=== PATIENT | female | born 1965 | race Caucasian/White ===

== ENCOUNTER 2018-01-10 09:36 | Emergency (ER) | payer OTHER ==
--- OUTSIDE RECORDS SUMMARY | 2018-01-10 09:43 | XMS REPORT ---
:1965 [facility] Address [address] [place] [address] Care Team Providers Name Role Phone Lucinda Stephens Unavailable Unavailable PROBLEMS Type Condition ICD9-CM Code [id number] Onset Condition SNOMED Code Code Dates Status Problem Other specified N93.8 Active 653646374 abnormal uterine and vaginal bleeding Problem Family history Z80.3 Active 296405686 of malignant neoplasm of breast Problem Body mass index Z68.35 Active 948088920136988 (BMI) 35.0-35.9, adult Problem Tobacco abuse Z71.6 Active [id number] counseling ALLERGIES Substance Reaction Event Type Date Status Augmentin rash Drug Allergy December, Active ENCOUNTERS Encounter Location Date Diagnosis [facility] [address] December, OBGYN [place], [place] [id number] [facility] 103 December, Other specified OBGYN [facility], abnormal uterine and [place] [id number] vaginal bleeding N93.8 [facility] 103 December, Other specified OBGYN [facility], abnormal uterine and [place] [id number] vaginal bleeding N93.8 and Body mass index (BMI) 35.0-35.9, adult Z68.35 [facility] 103 Nov, Other specified OBGYN [facility], abnormal uterine and [place] [id number] vaginal bleeding N93.8 ; Family history of malignant neoplasm of breast Z80.3 ; Body mass index (BMI) 35.0-35.9, adult Z68.35 and Tobacco abuse counseling Z71.6 IMMUNIZATIONS No Known Immunizations SOCIAL HISTORY Never Assessed REASON FOR REFERRAL FUNCTIONAL STATUS PLAN OF CARE Activity Details Follow Up to be scheduled Reason: VITAL SIGNS MEDICATIONS Medication Instructions Dosage Frequency Start Date End Date Duration Status Cytotec 200 mcg orally 1 tab at 1 tab(s) Active dinner night before procedure, 1 tab at bedtime night before procedure, 1 tab at 6 AM day of procedure PROCEDURES No Known procedures RESULTS No Results REASON FOR VISIT [facility] MEDICAL (GENERAL) HISTORY Type Description Date Medical History H/o Diverticulitis Medical History Benign breast Biopsy Left breast Surgical History Lt breast Benign breat Biopsy 2014 Hospitalization History child
--- OUTSIDE RECORDS SUMMARY | 2018-01-10 09:43 | XMS REPORT ---
:1965 Author Name sound, ultra Care Team Providers Name Role Phone sound, ultra Unavailable Unavailable PROBLEMS Type Condition ICD9-CM Code [id number] Onset Condition SNOMED Code Code Dates Status Problem Other specified N93.8 Active 229362275 abnormal uterine and vaginal bleeding Problem Family history Z80.3 Active 235821368 of malignant neoplasm of breast Problem Body mass index Z68.35 Active 443013291205789 (BMI) 35.0-35.9, adult Problem Tobacco abuse Z71.6 Active [id number] counseling ALLERGIES No Information ENCOUNTERS Encounter Location Date Diagnosis [facility] [address] December, OBGYN [facility], [place] [id number] [facility] 103 December, Other specified OBGYN [facility], abnormal uterine and [place] [id number] vaginal bleeding N93.8 [facility] 103 December, Other specified OBGYN [facility], abnormal uterine and [place] [id number] vaginal bleeding N93.8 and Body mass index (BMI) 35.0-35.9, adult Z68.35 [facility] 103 Nov, Other specified OBGYN [facility], abnormal uterine and [place] [id number] vaginal bleeding N93.8 ; Family history of malignant neoplasm of breast Z80.3 ; Body mass index (BMI) 35.0-35.9, adult Z68.35 and Tobacco abuse counseling Z71.6 IMMUNIZATIONS No Known Immunizations SOCIAL HISTORY Never Assessed REASON FOR REFERRAL FUNCTIONAL STATUS PLAN OF CARE Activity Details Pending Test URINE TEST VITAL SIGNS MEDICATIONS Unknown Medications PROCEDURES Procedure Date Ordered Result Body Site URINE TEST December 22, 2017 TRANSVAGINAL US, NON-OB December 22, 2017 3D rendering requiring imaging post processing December 22, 2017 ECHO EXAM, UTERUS December 22, 2017 CATHETER FOR HYSTEROGRAPHY December 22, 2017 RESULTS Name Result Date Reference Range Hysterosonogram REASON FOR VISIT [facility] MEDICAL (GENERAL) HISTORY Type Description Date Medical History H/o Diverticulitis Medical History Benign breast Biopsy Left breast Surgical History Lt breast Benign breat Biopsy 2014 Hospitalization History child
[2018-01-10 10:02] VITALS: BP 140/94
--- NOTE | 2018-01-10 10:30 | UC ---
Complaint Female HPI - HPI Summary HPI Summary: Patient has a recent [employer]ER procedure that she described as very rough. she was very sore afterward and had alot of nena pain. The pain was only when she urinated, no it is burning with urination, and feels brusied externally. - History Of Current Complaint Chief Complaint: UCGU Stated Complaint: URINARY COMPLAINT Time Seen by Provider: 01/10/18 09:43 Hx Obtained From: Patient Hx Last Menstrual Period: 11/01/17 ?: No Onset/Duration: Sudden Onset, Lasting Days Timing: Lasting Days Severity Initially: Mild Severity Currently: Moderate Pain Intensity: 3 Character: Burning Aggravating Factor(s): Movement, Urination - Allergies/Home Medications Allergies/Adverse Reactions: Allergies Allergy/AdvReac Type Severity Reaction Status Date / Time amoxicillin [From Augmentin] AdvReac vaginal Verified 01/10/18 10:03 yeast clavulanic acid AdvReac vaginal Verified 01/10/18 10:03 [From Augmentin] yeast Home Medications: Home Medications Dextromethorphn/Acetaminoph/Cp [Vicks Nyquil Cold & Flu N] 1 liq PO BEDTIME PRN 01/10/18 [History Confirmed 01/10/18] PMH/Surg Hx/FS Hx/Imm Hx Previously Healthy: Yes - Surgical History Surgical History: None - Family History Known Family History: Negative: Diabetes - Social History Alcohol Use: Occasionally Substance Use Type: None Smoking Status (MU): Light Every Day Tobacco Smoker Review of Systems Constitutional: Negative Skin: Negative Eyes: Negative ENT: Negative Respiratory: Negative Cardiovascular: Negative Gastrointestinal: Negative Genitourinary: Dysuria Motor: Negative Neurovascular: Negative Musculoskeletal: Negative Neurological: Negative Psychological: Negative Is Patient Immunocompromised?: No All Other Systems Reviewed And Are Negative: Yes Physical Exam Triage Information Reviewed: Yes Appearance: Well-Appearing, Well-Nourished, Pain Distress Vital Signs: Initial Vital Signs Temp 98.8 F 01/10/18 09:48 Pulse 67 01/10/18 09:48 Resp 18 01/10/18 09:48 BP 140/94 01/10/18 09:48 Pulse Ox 99 01/10/18 09:48 Vital Signs Reviewed: Yes Eye Exam: Normal ENT Exam: Normal Dental Exam: Normal Neck exam: Normal Respiratory Exam: Normal Cardiovascular Exam: Normal Abdominal Exam: Normal Bowel Sounds: Positive: Present Pelvic Exam: Positive: Other - 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 Musculoskeletal Exam: Normal Neurological Exam: Normal Complaint Female Dx - Course Course Of Treatment: hx obtained, exam performed ,meds reviewed, UA obtained and treated - Differential Dx/Diagnosis Differential Diagnosis/HQI/PQRI: Urinary Tract Infection, Other - labial trauma , cellulitis of genital area Provider Diagnoses: UTI Discharge - Sign-Out/Discharge Documenting (check all that apply): Discharge/Admit/Transfer - Discharge Plan Condition: Stable Disposition: HOME Prescriptions: Cephalexin CAP* [Keflex CAP*] 500 mg PO BID #14 cap Fluconazole [Diflucan 150 MG (NF)] 150 mg PO ONCE #1 tab Patient Education Materials: Urinary Tract Infection in Women (DC) Referrals: Eva Montoya MD [Primary Care Provider] - Additional Instructions: 1. Take the medication as prescribed. 2. Warm water bath soaks, [place] epsom salts if you would like to soothe the traumatic area 3. Coconut oil topically to soothe 4. Follow up with any worsening symtpoms - Billing Disposition and Condition Condition: STABLE Disposition: HOME
== END 2018-01-10 10:31 | disposition home or self-care (01) ==
LOC: UCCORT 09:36
DX: N39.0 Urinary tract infection, site not specified (principal); Z88.3 Allergy status to other anti-infective agents; F17.210 Nicotine dependence, cigarettes, uncomplicated
CPT/HCPCS: 81003; 87086; 99212; G0463

== ENCOUNTER 2018-02-14 10:14 | Emergency (ER) | payer OTHER ==
[2018-02-14 10:36] VITALS: BP 161/92
--- NOTE | 2018-02-14 11:11 | UC ---
Complaint Female HPI - HPI Summary HPI Summary: Patient has had a complicated last 2 months. Patient has a uterine instrumentation to evaluate dysfunctional uterine bleeding, unsuccessfully able to get into her uterus she since then has had pain had been treated with antibiotics for cellulitis and urinary tract infection. Is now into the urgent care with urinary pain and burning and urinary flatulence. Patient is afebrile and is not tachycardic. She has made a follow-up appointment with Dr. Wang but is unable to get in until late in February. - History Of Current Complaint Chief Complaint: UCGU Stated Complaint: URINARY Time Seen by Provider: 02/14/18 11:04 Hx Obtained From: Patient Hx Last Menstrual Period: 01/17/18 ?: No Onset/Duration: Gradual Onset, Worse Since - past 2 days Timing: Constant Severity Initially: Mild Severity Currently: Moderate Character: Burning Aggravating Factor(s): Urination Alleviating Factor(s): Nothing Associated Signs And Symptoms: Positive: Negative - Allergies/Home Medications Allergies/Adverse Reactions: Allergies Allergy/AdvReac Type Severity Reaction Status Date / Time No Known Allergies Allergy Verified 02/14/18 10:22 Home Medications: Home Medications NK [No Home Medications Reported] 02/14/18 [History Confirmed 02/14/18] PMH/Surg Hx/FS Hx/Imm Hx Previously Healthy: Yes - Surgical History Surgical History: None - Family History Known Family History: Positive: None Negative: Diabetes - Social History Occupation: Employed Full-time Lives: With Family Alcohol Use: Occasionally Substance Use Type: None Smoking Status (MU): Light Every Day Tobacco Smoker Type: Cigarettes Amount Used/How Often: 5-7 cigs/day Have You Smoked in the Last Year: Yes Review of Systems Constitutional: Negative Skin: Negative Eyes: Negative ENT: Negative Respiratory: Negative Cardiovascular: Negative Gastrointestinal: Negative Genitourinary: Dysuria Motor: Negative Neurovascular: Negative Musculoskeletal: Negative Neurological: Negative Psychological: Negative Is Patient Immunocompromised?: No All Other Systems Reviewed And Are Negative: Yes Physical Exam Triage Information Reviewed: Yes Appearance: Well-Appearing, Well-Nourished, Pain Distress - mild Vital Signs: Initial Vital Signs Temp 98 F 02/14/18 10:22 Pulse 69 02/14/18 10:22 Resp 16 02/14/18 10:22 BP 161/92 02/14/18 10:22 Pulse Ox 98 02/14/18 10:22 Vital Signs Reviewed: Yes Eye Exam: Normal Eyes: Positive: Conjunctiva Clear ENT Exam: Normal ENT: Positive: Normal ENT inspection, Hearing grossly normal. Negative: Trismus , Muffled voice, Hoarse voice Dental Exam: Normal Neck exam: Normal Neck: Positive: Supple, Nontender Respiratory Exam: Normal Respiratory: Positive: Chest non-tender, No respiratory distress, No accessory muscle use Cardiovascular Exam: Normal Cardiovascular: Positive: RRR, Pulses Normal, Brisk Capillary Refill Abdominal Exam: Normal Abdomen Description: Negative: CVA Tenderness (R), CVA Tenderness (L) Musculoskeletal Exam: Normal Musculoskeletal: Positive: Strength Intact, ROM Intact, No Edema Neurological Exam: Normal Neurological: Positive: Alert, Muscle Tone Normal Psychological Exam: Normal Skin Exam: Normal Diagnostics - Laboratory Diagnostic Studies Completed/Ordered: Urine dip was positive for blood, leukoesterase, nitrites, protien Complaint Female Dx - Course Course Of Treatment: npo, to [facility] by private car for further assessment and treatment - Differential Dx/Diagnosis Provider Diagnoses: acute pelvic pain,urinary flatulence - Physician Notifications Time Discussed With Above Provider: 11:15 - [facility] Nurse Liaison Instructed by Provider To: Transfer Discharge - Sign-Out/Discharge Documenting (check all that apply): Discharge/Admit/Transfer - Discharge Plan Condition: Fair Disposition: HOME Discharge Disposition Comment: D/c to [facility] ed for further evaluation Patient Education Materials: Acute Abdominal Pain (ED), Pelvic Pain in Women ( ED) Referrals: Eva Montoya MD [Primary Care Provider] - - Billing Disposition and Condition Condition: FAIR Disposition: Home
== END 2018-02-14 11:24 | disposition home or self-care (01) ==
LOC: UCCORT 10:14
DX: R10.2 Pelvic and perineal pain (principal); R14.3 Flatulence; R39.89 Other symptoms and signs involving the genitourinary system; F17.210 Nicotine dependence, cigarettes, uncomplicated
CPT/HCPCS: 81003; 87077; 87086; 87186; 99212; G0463

== ENCOUNTER 2018-07-21 12:01 | Emergency (ER) | payer OTHER ==
--- OUTSIDE RECORDS SUMMARY | 2018-07-21 12:51 | XMS REPORT ---
:1965 External Reference #:[id number] Author Organization [facility] Address [address], [address] [place] [address] Phone [phone] Care Team Providers Name Role Phone Eva Montoya MD Care Team Information Behavioral Health Director Unavailable Eva Montoya MD Primary Care Physician Unavailable Payers Type Date Identification Numbers Payment Provider Subscriber Commercial Policy Number: [id number] Lifetime Benefit Solution Austen Valderrama PayID: [id number] [address] [address] [place] [address] Problems Date Description Provider Status Onset: 07/05/2018 Urinary tract infectious disease Yobany Fairbanks M.D. Active Onset: 03/29/2018 Detrusor instability of bladder Yobany Fairbanks M.D. Active Onset: 03/29/2018 Intestinovesical fistula Yobany Fairbanks M.D. 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 soda Allergies, Adverse Reactions, Alerts Date Description Reaction Status Severity Comments 03/08/2018 Bactrim active 02/15/2018 NKDA inactive Medications Medication Date Status Form Strength Qnty SIG Indications Ordering Provider Ibuprofen 200 / Active Tablets 200mg 1-2 tabs by Unknown 0000 mouth three times a day as needed Uribel 05/20/ Hx Capsules 118mg 20caps 1 tab by Sue, 2017 - mouth up to [facility], 07/05/ four times M.D. 2017 a day azra Levaquin 05/05/ Hx Tablets 500mg 21tabs 1 by mouth Sue, 2017 - [facility] Myrbetriq 03/26/ Hx Tablets ER 50mg 30tabs 1 by mouth Sue, 2017 - [facility] Golytely 03/25/ Hx Solution 236gm 4000ml drink half Z12.11 Shayla, 2018 - Rec the evening MD Jake 07/05/ before and 2017 half the morning of the procedure (1 cup every 10') Dulcolax 03/25/ Hx Tablets DR 5mg 4tabs 4 tablets Z12.Christel Mcguire, 2018 - taken a 8pm MD Jake 07/05/ the day 2017 before the procedure Magnesium 03/25/ Hx Solution 1.745GM/30 296ml Z12.11 Shayla Citrate 2017 - ML MD Jake 2017 Ditropan XL 03/18/ Hx Tablets ER 10mg 8tabs 1 by mouth Sue, 2018 - 24HR every day [facility] Ibuprofen / Hx Tablets 200mg take one Unknown 0000 - tablet by mouth every 2017 12 hours as needed for pain with food Keflex / Hx Capsules 500mg bid Unknown 0000 - 2017 Senna / Hx Tablets 8.6mg Once a day Unknown Laxative 0000 - prn 2017 Eye Drops / Hx bid Unknown 0000 - 2017 Vital Signs Date Vital Result Comment 07/05/2018 BP Systolic 156 mmHg BP Diastolic 96 mmHg Body Temperature 98.1 F Heart Rate 64 /min Respiratory Rate 16 /min Weight 198.38 lb O2 % BldC Oximetry 96 % Pain Level 0 03/29/2018 BP Systolic 177 mmHg 178/90 mau BP Diastolic 91 mmHg 178/90 mau Body Temperature 98.6 F Heart Rate 79 /min Respiratory Rate 16 /min O2 % BldC Oximetry 97 % Pain Level 0 03/25/2018 BP Systolic Sitting Left Arm 140 mmHg BP Diastolic Sitting Left Arm 90 mmHg Heart Rate 58 /min Respiratory Rate 16 /min Height 62.5 inches 5'2.50" Weight 193.00 lb BMI (Body Mass Index) 34.7 kg/m2 BSA (Body Surface Area) 1.89 m2 [place] body weight in kilograms 51 03/08/2018 BP Systolic 124 mmHg BP Diastolic 88 mmHg Body Temperature 99.3 F Heart Rate 79 /min Respiratory Rate 16 /min Height 62.5 inches 5'2.50" [place] body weight in kilograms 51 O2 % BldC Oximetry 99 % Pain Level 3 Low abd pain - bloating sensation 02/15/2018 BP Systolic 158 mmHg BP Diastolic 85 mmHg Body Temperature 98.1 F Heart Rate 67 /min Respiratory Rate 16 /min Height 62.5 inches 5'2.50" Weight 195.00 lb BMI (Body Mass Index) 35.1 kg/m2 BSA (Body Surface Area) 1.90 m2 [place] body weight in kilograms 51 O2 % BldC Oximetry 97 % Pain Level 2 Burning on urination 09/25/2017 Body Temperature 97.7 F Respiratory Rate 19 /min Height 62.5 inches Weight 207.00 lb BMI (Body Mass Index) 37.3 kg/m2 BSA (Body Surface Area) 1.95 m2 [place] body weight in kilograms 51 Results Test Date Test Result H/L Range Note Urine Culture 05/20/2018 Urine Culture URETHRAL LAUREL 1 Quantity 10,000 - 50,000 <SEE NOTE> 1, 2 Ua RFX Micro & Culture II 05/03/2018 Urine Color YELLOW Yellow 1 Urine Clarity CLOUDY Clear 1 Urine Glucose - Dipstick NEGATIVE mg/dL Negative 1 Urine Bilirubin - Dipstick NEGATIVE Negative 1 Urine Ketone NEGATIVE mg/dL Negative 1 Urine Specific [place] 1.020 1.010-1.030 1 Urine Blood MODERATE Negative 1 Urine PH 8.5 High 6.5-7.5 1 Urine Protein - Dipstick TRACE mg/dL Negative 1 Urine Urobilinogen - Dipstick 0.2 E.U./dL 0.2-1.0 1 Urine Nitrite - Dipstick NEGATIVE Negative 1 Urine Leuk Esterase SMALL Negative 1 Urine RBC 10-20 rbc/hpf High 0-2 1 Urine WBC TNTC wbc/hpf High 0-7 1 Urine Epithelial Cells MODERATE /lpf None Seen 1, 3 Urine Bacteria MODERATE None Seen 1 Urine Amorph Sediment SMALL Negative 1 Source: URINE, CLEAN CAT <SEE NOTE> 1, 4 Urine Culture 05/03/2018 Urine Culture KLEBSIELLA OXYTO <SEE NOTE> 1, 5 Quantity > 100,000 CFU/mL 1, 6 Urine Culture URETHRAL LAUREL 1 Quantity < 10,000 CFU/mL 1 Klebsiella Oxytoca 05/03/2018 Nitrofurantoin 32 1 Trimethoprim/Sulfamethoxazole <=20 1 Ampicillin >=32 1 Cefazolin <=4 1 Ampicillin/Sulbactam 8 1 Ciprofloxacin <=0.25 1 Piperacillin/Tazobactam <=4 1 Ceftazidime <=1 1 Ceftriaxone <=1 1 Cefepime <=1 1 Levofloxacin <=0.12 1 Imipenem <=0.25 1 Gentamicin <=1 1 Tobramycin <=1 1 Surgical Tissue 03/11/2018 Surgical Pathology Surgical Patholo <SEE NOTE> 7 Urine Culture 03/08/2018 Urine Culture URETHRAL LAUREL 8 Quantity 10,000 - 50,000 <SEE NOTE> 8, 9 Ua RFX Micro & Culture II 03/08/2018 Urine Color YELLOW Yellow 8 Urine Clarity SL CLOUDY Clear 8 Urine Glucose - Dipstick NEGATIVE mg/dL Negative 8 Urine Bilirubin - Dipstick NEGATIVE Negative 8 Urine Ketone NEGATIVE mg/dL Negative 8 Urine Specific [place] >=1.030 1.010-1.030 8 Urine Blood LARGE Negative 8 Urine PH 6.0 Low 6.5-7.5 8 Urine Protein - Dipstick 30 mg/dL High Negative 8 Urine Urobilinogen - Dipstick 0.2 E.U./dL 0.2-1.0 8 Urine Nitrite - Dipstick NEGATIVE Negative 8 Urine Leuk Esterase MODERATE Negative 8 Urine RBC 5-10 rbc/hpf High 0-2 8 Urine WBC > 50 wbc/hpf High 0-7 8 Urine Epithelial Cells FEW /lpf None Seen 8 Urine Bacteria MODERATE None Seen 8 1 N39.0 2 10,000 - 50,000 CFU/mL 3 POSSIBLE UROGENITAL CONTAMINATION. 4 URINE, CLEAN CATCH 5 KLEBSIELLA OXYTOCA 6 > 100,000 CFU/mL 7 Surgical Pathology Report Name: NATASHA VALDERRAMA Collection Date: 03/11/2018 16:50 Received Date: 03/12/2018 07:53 Physician(s): YOBANY FAIRBANKS MAHMOUD Specimen(s) Received A: Bladder mass Clinical History Bladder mass. Diagnosis BLADDER, MASS, BIOPSY: MODERATE TO SEVERE ACUTE AND CHRONIC INFLAMMATION AND REACTIVE UROTHELIAL CHANGES CONSISTENT WITH POLYPOID CYSTITIS (See microscopic description). Electronically Signed By Lc Kohler M.D., Attending Pathologist 03/15/2018 16:50:43 Gross Description The specimen is received in formalin labeled with the patient's name "Natasha Valderrama" and "bladder mass". It consists of multiple (greater than 10) soft osorio tissue fragments ranging from 0.2 cm to 0.7 cm and aggregating to 2.2 cm. Totally submitted in one cassette. MG/km Microscopic Description Sections show edematous submucosa and moderate to severe acute and chronic inflammation with overlying broad based papillae without significant branching. The urothelial lining is reactive without loss of polarization of nuclei. 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 This report may include one or more immunohistochemical stain results that use analyte specific reagents. All positive and negative controls have been reviewed by the attending pathologist and are satisfactory. The tests were developed and their performance characteristics determined by [facility] Pathology department. They have not been cleared or approved by the [place] Food and Drug Administration. The FDA has determined that such clearance or approval is not necessary. 8 C67.4 9 10,000 - 50,000 CFU/mL Procedures Date CPT Code Description Status 04/05/2018 34020 Cystoscopy Completed 04/05/2018 45080 Injection For Cystography Or Voiding Urethrocystography Completed 04/05/2018 32884 Colonoscopy With Polypectomy Completed 02/15/2018 75990 Cystourethroscopy W/ Fulguration/Resect Med Bladder Completed Tumor 11/09/2003 04230 Asp./Injection major joint Completed Encounters Type Date Location Provider CPT E/M Dx Office Visit 03/29/2018 3:15p Urology Yobany Fairbanks M.D. 16307 N32.89 Office Visit 03/25/2018 10:15[place] [address] Z12.11 R39.89 Office Visit 03/08/2018 3:45p Urology Yobany Fairbanks M.D. 21155 R21 Office Visit 02/15/2018 3:15p Urology Yobany Fairbanks M.D. 67176 R39.89 Office Visit 09/25/2017 2:30p Orthopaedic Office Enedina Knutson, [address] M25.571 [facility] Plan of Care Future Appointment(s):07/15/2018 4:00 pm - Yobany Fairbanks M.D. at [email or web address] - Yobany Fairbanks M.D.N39.0 Urinary tract infection, site not specifiedComments:Patient with history of UTI and pneumaturia. We'll repeat a urine culture today to see if she continues to have one. Patient to follow-up with me in 3 months for cystoscopy. I told her to stop taking the ibuprofen.
[2018-07-21 13:02] VITALS: BP 164/98
--- NOTE | 2018-07-21 13:28 | UC ---
Throat Pain/Nasal Cash HPI - HPI Summary HPI Summary: 52-year-old woman comes to clinic today with a chief complaint of 2 weeks of runny nose sinus pressure rhinorrhea sore throat and feeling ill. She's tried [id number] medicines which helped some but then the symptoms worsening AGAIN. She's had some fevers and chills. The rhinorrhea is yellow to green. A lot of sinus pressure. Has also been having some ear pressure primarily on the right side has also. She does have a history of earwax. - History of Current Complaint Chief Complaint: UCRespiratory Stated Complaint: SINUS CONGESTION Time Seen by Provider: 07/21/18 13:00 Hx Last Menstrual Period: 01/17/18 Pain Intensity: 0 - Allergies/Home Medications Allergies/Adverse Reactions: Allergies Allergy/AdvReac Type Severity Reaction Status Date / Time sulfamethoxazole Allergy Rash Verified 07/21/18 12:58 [From Bactrim] trimethoprim [From Bactrim] Allergy Rash Verified 07/21/18 12:58 Home Medications: Home Medications Ibuprofen TAB* [Advil TAB*] 800 mg PO Q6H PRN 07/21/18 [History Confirmed ] PMH/Surg Hx/FS Hx/Imm Hx Previously Healthy: Yes - Surgical History Surgical History: None - Family History Known Family History: Positive: None Negative: Diabetes - Social History Alcohol Use: Occasionally Substance Use Type: None Smoking Status (MU): Light Every Day Tobacco Smoker Type: Cigarettes Amount Used/How Often: 5-7 cigs/day Have You Smoked in the Last Year: Yes Review of Systems All Other Systems Reviewed And Are Negative: Yes Constitutional: Positive: Fever, Chills Skin: Positive: Negative Eyes: Positive: Negative ENT: Positive: Sore Throat, Ear Ache - RIGHT, Nasal Discharge, Sinus Congestion , Sinus Pain/Tenderness Respiratory: Positive: Negative Cardiovascular: Positive: Negative Gastrointestinal: Positive: Negative Motor: Positive: Negative Neurovascular: Positive: Negative Musculoskeletal: Positive: Negative Neurological: Positive: Negative Psychological: Positive: Negative Is Patient Immunocompromised?: No Physical Exam Triage Information Reviewed: Yes Appearance: No Pain Distress, Well-Nourished, Ill-Appearing - MILD Vital Signs: Initial Vital Signs Temp 99.1 F 07/21/18 12:58 Pulse 76 07/21/18 12:58 Resp 18 07/21/18 12:58 BP 164/98 12/12/18 12:58 Pulse Ox 98 07/21/18 12:58 Vital Signs Reviewed: Yes Eye Exam: Normal Eyes: Positive: Conjunctiva Clear ENT: Positive: Pharyngeal erythema, Nasal congestion, Nasal drainage, Other - RIGHT CERUMEN IMPACTION Neck exam: Normal Neck: Positive: Supple Respiratory: Positive: Lungs clear, Normal breath sounds, No respiratory distress Cardiovascular: Positive: RRR Musculoskeletal Exam: Normal Musculoskeletal: Positive: Strength Intact, ROM Intact Neurological Exam: Normal Neurological: Positive: Alert, Muscle Tone Normal Psychological Exam: Normal Psychological: Positive: Age Appropriate Behavior Skin Exam: Normal Throat Pain/Nasal Course/Dx - Course Course Of Treatment: I discussed continued symptomatic treatment for the sinuses. Prescribed Augmentin. With the cerumen impaction on the right patient declined irrigation today and I recommended using [id number] earwax drops and follow-up as needed. - Differential Dx/Diagnosis Provider Diagnosis: Sinusitis, Impacted cerumen, right ear Discharge - Sign-Out/Discharge Documenting (check all that apply): Patient Departure All imaging exams completed and their final reports reviewed: No Studies - Discharge Plan Condition: Stable Disposition: HOME Prescriptions: Amoxicillin/Clavulanate TAB* [Augmentin TAB 875*] 875 mg PO BID #20 tab Fluconazole [Diflucan 150 MG (NF)] 150 mg PO ONCE #2 tab Patient Education Materials: Sinusitis (ED), Cerumen Impaction (ED) Referrals: Eva Montoya MD [Primary Care Provider] - Additional Instructions: FOLLOW UP WITH YOUR DOCTOR IF NOT COMPLETELY IMPROVED. USE OVER THE COUNTER EAR WAX DROPS TO HELP LOOSEN UP THE EAR WAX. GET RECHECKED FOR ANY WORSENING OF YOUR CONDITION OR QUESTIONS OR CONCERNS. - Billing Disposition and Condition Condition: STABLE Disposition: Home
== END 2018-07-21 13:42 | disposition home or self-care (01) ==
LOC: UCCORT 12:01
DX: J32.9 Chronic sinusitis, unspecified (principal); H61.21 Impacted cerumen, right ear; Z88.1 Allergy status to other antibiotic agents; F17.210 Nicotine dependence, cigarettes, uncomplicated
CPT/HCPCS: 99212; G0463

== ENCOUNTER 2018-10-04 13:44 | Emergency (ER) | payer OTHER ==
[2018-10-04 14:08] VITALS: BP 145/69
--- NOTE | 2018-10-04 14:29 | UC ---
UC General HPI - HPI Summary HPI Summary: sore throat x 5-6 days. admits to mild nasal congestion and chronic cough from smoking. no sob, fever, SOUTH or myalgias. no asthma or copd. - History of Current Complaint Chief Complaint: UCGeneralIllness Stated Complaint: ST Time Seen by Provider: 10/04/18 14:16 Hx Obtained From: Patient Hx Last Menstrual Period: 01/17/18 Pain Intensity: 3 Associated Signs & Symptoms: Negative: Chest Pain, Fever - Allergy/Home Medications Allergies/Adverse Reactions: Allergies Allergy/AdvReac Type Severity Reaction Status Date / Time sulfamethoxazole Allergy Rash Verified 10/04/18 14:04 [From Bactrim] trimethoprim [From Bactrim] Allergy Rash Verified 10/04/18 14:04 PMH/Surg Hx/FS Hx/Imm Hx Previously Healthy: Yes - Surgical History Surgical History: None - Family History Known Family History: Positive: None Negative: Diabetes - Social History Occupation: Employed Full-time Alcohol Use: Occasionally Substance Use Type: None Smoking Status (MU): Light Every Day Tobacco Smoker Type: Cigarettes Amount Used/How Often: ~1/3 PPD Length of Time of Smoking/Using Tobacco: Since Age 17 Have You Smoked in the Last Year: Yes Review of Systems All Other Systems Reviewed And Are Negative: Yes Constitutional: Positive: Negative Skin: Positive: Negative Eyes: Positive: Negative ENT: Positive: Sore Throat, Sinus Congestion Respiratory: Positive: Cough Cardiovascular: Positive: Negative Gastrointestinal: Positive: Negative Genitourinary: Positive: Negative Motor: Positive: Negative Neurovascular: Positive: Negative Musculoskeletal: Positive: Negative Neurological: Positive: Negative Psychological: Positive: Negative Physical Exam Triage Information Reviewed: Yes Appearance: Well-Appearing Vital Signs: Initial Vital Signs Temp 98.1 F 10/04/18 14:01 Pulse 72 10/04/18 14:01 Resp 16 10/04/18 14:01 BP 145/69 10/04/18 14:01 Pulse Ox 99 10/04/18 14:01 Vital Signs Reviewed: Yes Eyes: Positive: Conjunctiva Clear ENT: Positive: Pharyngeal erythema - mild, TMs normal - L. Cerumen impaction R, Uvula midline - but mildly red and swollen.. Negative: Nasal drainage, Trismus , Muffled voice, Hoarse voice, Sinus tenderness Neck: Positive: Supple, Enlarged Nodes @ - peritonsilar Respiratory: Positive: Lungs clear, No respiratory distress, Decreased breath sounds - slight Cardiovascular: Positive: RRR, No Murmur Abdomen Description: Positive: Nontender, No Organomegaly, Soft Bowel Sounds: Positive: Present Musculoskeletal: Positive: ROM Intact Neurological: Positive: Alert Psychological: Positive: Age Appropriate Behavior Skin Exam: Normal Diagnostics - Laboratory Diagnostic Studies Completed/Ordered: rapid strep=neg Course/Dx - Course Course Of Treatment: pt declined to have ear flushed, wants to soften with otc drops and have pcp recheck on f/o. no hx htn, bp visit / illness related but will have recheck on f/u. - Differential Dx - Multi-Symptom Differential Diagnoses: Other - rapid strep=neg. no concern for pharyngeal abscess. exam c/w uvulitis thus will tx for a presumptive bacterial infection. pt declined po steroid. will write for an albuterol inhaler for her cough. - Diagnoses Provider Diagnosis: Uvulitis Discharge - Sign-Out/Discharge Documenting (check all that apply): Patient Departure All imaging exams completed and their final reports reviewed: No Studies - Discharge Plan Condition: Stable Disposition: HOME Prescriptions: Albuterol HFA INHALER* [Ventolin HFA Inhaler*] 2 puff INH Q6H #1 mdi Amoxicillin PO (*) [Amoxicillin 875 MG (*)] 875 mg PO BID 10 Days #20 tab Patient Education Materials: Uvulitis (ED) Referrals: Eva Montoya MD [Primary Care Provider] - 7 Days - Billing Disposition and Condition Condition: STABLE Disposition: Home - Attestation Statements Provider Attestation: Per institutional requirements, I have reviewed the chart, however, I was not consulted specifically or made aware of this patient by the midlevel provider. I did not personally evaluate, interact with , or disposition this patient.
== END 2018-10-04 14:38 | disposition home or self-care (01) ==
LOC: UCCORT 13:44
DX: K12.2 Cellulitis and abscess of mouth (principal); R09.81 Nasal congestion; R05 Cough; Z88.2 Allergy status to sulfonamides; F17.210 Nicotine dependence, cigarettes, uncomplicated
CPT/HCPCS: 87651; 99212; G0463